=== PATIENT | male | born 1955 | race Caucasian/White ===

== ENCOUNTER 2017-03-10 16:57 | Inpatient (IN) ==
--- NOTE | 2017-03-10 17:20 | Emergency Department Note ---
Disposition Clinical Impression: Hypoxia, COPD exacerbation Pneumonia Qualifiers: Pneumonia type: due to unspecified organism Laterality: unspecified laterality Lung location: unspecified part of lung Qualified Code(s): J18.9 - Pneumonia, unspecified organism Disposition: Admitted As Inpatient Condition: Fair SOB HPI - General Chief Complaint: ED Shortness of Breath/Dyspnea Stated Complaint: SILVIA Time Seen by Provider: 03/10/17 17:01 Source: other Limitations: no limitations Nursing Notes Reviewed: Yes Vital Signs Reviewed: Yes - History of Present Illness Patient presents as a transfer from his nurse practitioner for further evaluation of pneumonia. Patient presents to triage with initial pulse ox of 83 %. Patient placed on 3 L nasal cannula and is currently at 95%. Patient has a history of lung cancer with left lipectomy. Patient has been having dyspnea for 2 weeks that has been tried to be treated as an outpatient. Patient has failed antibiotics which include azithromycin and Doxy and ceftriaxone IM. Patient has been without a cancer diagnosis for over 15 years. 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 Patient has not been receiving chemotherapy. Patient's COPD has been otherwise well controlled with at-home medications. Not oxygen dependent at home. - Related Data Home Medications Medication Instructions Recorded Confirmed Albuterol Sulfate [Ventolin Hfa] 2 puff IH Q4H PRN 03/10/17 03/10/17 Budesonide/Formoterol 160/4.5 2 puff IH BID 03/10/17 03/10/17 [Symbicort 160/4.5] Allergies Allergy/AdvReac Type Severity Reaction Status Date / Time adhesive tape Allergy Mild Blister Verified 03/10/17 17:18 acetaminophen [From Percocet] Allergy Hives Verified 03/10/17 17:18 Oxycodone [From Percocet] Allergy Hives Verified 03/10/17 17:18 Review of Systems: CONSTITUTIONAL: Fever and night sweats and weakness and fatigue HEENT: Eyes: No visual changes. Ears, Nose, Throat: No hearing loss, difficulty talking or unable to swallow. SKIN: No rash or itching. CARDIOVASCULAR: No chest pain, chest pressure or chest discomfort. No palpitations or edema. RESPIRATORY: Shortness of breath with cough GASTROINTESTINAL: No anorexia, nausea, vomiting or diarrhea. No abdominal pain or blood. GENITOURINARY: No burning on urination or hematuria. NEUROLOGICAL: No headache, dizziness, syncope, paralysis, ataxia, numbness or tingling in the extremities. No change in bowel or bladder control. MUSCULOSKELETAL: No muscle pain, back pain, joint pain or stiffness. Past Medical History - Past Medical History Medical history: Reports: cancer, COPD, TIA Psychiatric history: Reports: no psych history - Social History Smoking Status: Former smoker Smokeless Tobacco Status: No Alcohol use: Reports: occasionally Drug use: Reports: none Physical Exam General appearance: Pursed lip breathing Eyes: anicteric sclerae, moist conjunctivae; PERRL HENT: Atraumatic; oropharynx clear with moist mucous membranes and no mucosal ulcerations Neck: Normal inspection; Trachea midline; FROM, supple Lungs: Wheezing with significant rhonchi bilaterally. CV: RRR, no MRGs Abdomen: Soft, non-tender; no rebound or gaurding Extremities: No peripheral edema or extremity lymphadenopathy Skin: Normal temperature; no rash, ulcers or lesions Psych: Appropriate mood and affect Neuro: alert and oriented to person, place and time - General Limitations: no limitations General appearance: alert, in distress Course - Reevaluation(s) Reevaluation #1: Patient has an elevated white count. He has been on steroids but he also has rhonchi that are audible from the doorway. Chest x-ray is unremarkable from the previous per radiologist read however there is concern for right lower lobe pneumonia. Antibiotics started. Blood cultures are pending. Initial lactate normal. - Consultations Consultation #1: Discussed with hospitalist Dr. Figueroa. Pt accepted for admission. Vital Signs Temperature 98.0 F 03/10/17 17:00 Pulse Rate 112 03/10/17 17:00 Respiratory Rate 26 03/10/17 17:00 Blood Pressure 171/102 03/10/17 17:00 O2 Sat by Pulse Oximetry 83 03/10/17 17:00 Temperature 97.8 F 03/12/17 19:33 Pulse Rate 74 03/12/17 19:33 Respiratory Rate 18 03/12/17 19:33 Blood Pressure 111/62 03/12/17 19:33 O2 Sat by Pulse Oximetry 91 03/12/17 19:33 Oxygen Delivery Oxygen Delivery Nasal Cannula Shortness of Breath/Dyspnea - Medical Records Medical records reviewed: Yes I reviewed the patient's medical records. - Lab Data Lab results reviewed: Yes I reviewed the patient's lab results. Result diagrams: 03/12/17 03:45 03/12/17 06:37 Lab Results 03/10/17 03/10/17 03/10/17 Range/Units 17:10 17:10 17:10 WBC 15.3 H (4.3-11.1) K/mcL RBC 5.63 H (4.19-5.50) M/mcL Hgb 15.3 (12.9-16.9) g/dL Hct 47.3 (37.5-50.1) % MCV 84.0 (83.0-100.0) fL MCH 27.2 L (28.0-33.3) pg MCHC 32.3 (31.6-35.5) g/dL RDW 13.9 (11.5-14.5) % Plt Count 363 (140-400) K/mcL MPV 9.5 (9.4-12.4) fL Immature Gran % 1.3 (0-4) % Seg Neutrophils % 79.4 % Lymphocytes % 9.0 % Monocytes % 9.8 % Eosinophils % 0.2 % Basophils % 0.3 % Neutrophils # 12.1 H (1.6-8.9) K/mcL Lymphocytes # 1.4 (0.6-4.6) K/mcL Monocytes # 1.5 H (0.0-1.3) K/mcL Eosinophils # 0.0 (0.0-0.6) K/mcL Basophils # 0.0 (0.0-0.2) K/mcL Sodium 140 (136-145) mEq/L Potassium 4.2 (3.5-4.5) mEq/L Chloride 99 (98-109) mEq/L Carbon Dioxide 30 H (19-29) mEq/L BUN 18 (8-26) mg/dL Creatinine 0.85 (0.72-1.25) mg/dL Est GFR ( Amer) > 60 (> 60) Est GFR (Non-Af Amer) > 60 (> 60) BUN/Creatinine Ratio 21 (6-26) Glucose 122 H (70-99) mg/dL Calculated Osmolality 293 (280-300) Lactic Acid (0.5-2.2) mmol/L Calcium 9.2 (8.6-10.8) mg/dL Phosphorus 2.8 (2.3-4.7) mg/dL Magnesium 2.5 (1.6-2.6) mg/dL Troponin I 0.02 (0-0.03) ng/mL B-Natriuretic Peptide (0-100) pg/mL 03/10/17 03/10/17 Range/Units 17:10 18:17 WBC (4.3-11.1) K/mcL RBC (4.19-5.50) M/mcL Hgb (12.9-16.9) g/dL Hct (37.5-50.1) % MCV (83.0-100.0) fL MCH (28.0-33.3) pg MCHC (31.6-35.5) g/dL RDW (11.5-14.5) % Plt Count (140-400) K/mcL MPV (9.4-12.4) fL Immature Gran % (0-4) % Seg Neutrophils % % Lymphocytes % % Monocytes % % Eosinophils % % Basophils % % Neutrophils # (1.6-8.9) K/mcL Lymphocytes # (0.6-4.6) K/mcL Monocytes # (0.0-1.3) K/mcL Eosinophils # (0.0-0.6) K/mcL Basophils # (0.0-0.2) K/mcL Sodium (136-145) mEq/L Potassium (3.5-4.5) mEq/L Chloride (98-109) mEq/L Carbon Dioxide (19-29) mEq/L BUN (8-26) mg/dL Creatinine (0.72-1.25) mg/dL Est GFR ( Amer) (> 60) Est GFR (Non-Af Amer) (> 60) BUN/Creatinine Ratio (6-26) Glucose (70-99) mg/dL Calculated Osmolality (280-300) Lactic Acid 1.0 (0.5-2.2) mmol/L Calcium (8.6-10.8) mg/dL Phosphorus (2.3-4.7) mg/dL Magnesium (1.6-2.6) mg/dL Troponin I (0-0.03) ng/mL B-Natriuretic Peptide 35 (0-100) pg/mL - Radiology Data Radiology results reviewed: Yes I reviewed the patient's radiology results. - EKG Data EKG attestation: Yes I reviewed and interpreted this EKG. EKG results narrative: EKG shows sinus rhythm with ventricular rate of 106. LA interval 135. QRS 70. QTC 367. No significant ST elevations or depressions. No previous EKG for comparison. Attestation Statement - Attestation Attestation: I examined this patient and my medical decision-making was reviewed with the Resident Physician. I agree with the documented findings, disposition and treatment plan as described except to the extent set forth below. Patient presents to the ED with difficulty in breathing. Some progressive over a couple weeks. He seen his PCP multiple times. His multiple rounds of antibiotics and inhalers. He is getting worse. On examination he is in no distress. He is audibly wheezing. Crackles in bases. Plan. Patient short of breath on outpatient treatment. Likely admission. 30 minutes of critical care exclusive of separately billable procedures.
[2017-03-10 17:27] LABS: Basophils % 0.3 %; Eosinophils % 0.2 %; Hematocrit 47.3 % (37.5-50.1); Hemoglobin 15.3 g/dL (12.9-16.9); Immature Granulocytes % 1.3 % (0-4); Lymphocytes # 1.4 K/mcL (0.6-4.6); Mean Corpuscular HGB Conc 32.3 g/dL (31.6-35.5); Mean Corpuscular Hemoglobin 27.2 pg (28.0-33.3); Mean Platelet Volume 9.5 fL (9.4-12.4); Monocytes # 1.5 K/mcL (0.0-1.3); Monocytes % 9.8 %; Neutrophils # 12.1 K/mcL (1.6-8.9); Platelet Count 363 K/mcL (140-400); Red Blood Count 5.63 M/mcL (4.19-5.50); Red Cell Distribution Width 13.9 % (11.5-14.5); Segmented Neutrophils % 79.4 %
[2017-03-10 17:42] LABS: BUN/Creatinine Ratio 21 (6-26); Blood Urea Nitrogen 18 mg/dL (8-26); Calcium 9.2 mg/dL (8.6-10.8); Carbon Dioxide 30 mEq/L (19-29); Chloride 99 mEq/L (98-109); Glucose 122 mg/dL (70-99); Magnesium 2.5 mg/dL (1.6-2.6); Osmolality,Calculated 293 (280-300); Phosphorous 2.8 mg/dL (2.3-4.7); Potassium 4.2 mEq/L (3.5-4.5); Sodium 140 mEq/L (136-145); eGFR For African Americans > 60 (> 60); eGFR For Non-African Americans > 60 (> 60)
[2017-03-10] MEDS ORDERED: Ipratropium/Albuterol Neb 3 ML IH ONE (18:23)
[2017-03-10] MEDS ORDERED: methylPREDNISolone 125 MG/2 ML VIAL IVP ONE (18:24)
[2017-03-10] MEDS ORDERED: Piperacillin/Tazobactam 3.375 GM in D5% in Water (Mini-Bag+) 100 ML IVPB ONE (18:50)
[2017-03-10] MEDS ORDERED: Levofloxacin 750 MG/150 ML 750 MG/150 ML BAG IVPB STA (18:50)
[2017-03-10] MEDS ORDERED: Piperacillin/Tazobactam 3.375 GM in Water for inj. (sterile) 20 ML IVPB ONE (19:00)
[2017-03-10] MEDS: Piperacillin/Tazobactam 3.375 GM in Water for inj. (sterile) 20 ML IVP ONE ×2 (19:45→19:55)
[2017-03-10] MEDS ORDERED: Naloxone 0.4 MG/ML INJ IVP PRN ×2 (21:36→21:53)
[2017-03-10] MEDS ORDERED: Ipratropium/Albuterol Neb 3 ML IH PRN (21:39)
--- NOTE | 2017-03-10 21:49 | Internal Med History&Physical ---
Date of Encounter: 03/10/17 Time of Encounter: 21:45 Assessment and Plan (1) COPD exacerbation Current visit: Yes Status: Acute duonebs, IV steroids, IV levaquin send strep pneumo Ag, RVP CXR w/o over consolidation (2) Hypoxia Current visit: Yes Status: Acute treat above (3) Leukocytosis, unspecified Current visit: Yes Status: Acute doubt sepsis, could be from outpatient steroids blood cx sent from ED On antibiotics Qualifiers: Leukocytosis type: other Qualified Code(s): D72.828 - Other elevated white blood cell count Internal Medicine - H&P: HPI Chief complaint: SOB History of present illness: Mr. Harris is a 61 year old male who presents with COPD exacerbation. He reported 2 weeks hx of SOB and was seen by PCP Dr Boateng to receive outpatient steroids and antibiotics. Symptoms did not improve suggesting failure of outpatient therapy. He became so short of breathe that he gets winded walking in his house. At baseline, he is on RA. No improving factors. He quit smoking in 1992. Review noted some subjective fever. He has a hx of lung ca s/p resection and brain met s/p resection many years ago. Now in remission EKG personally reviewed with rate 106, sinus tachycardia XR/XR chest 1V portable IMPRESSION: Stable appearance of the chest with no acute abnormality. Past Med Surg Social Fam HX - Past Medical History Medical history: cancer, COPD, TIA Psychiatric history: no psych history - Past Surgical History Surgical History: no surgical history - Social History Smoking Status: Former smoker Smokeless Tobacco Status: No Alcohol use: occasionally Drug use: none - Additional Family History Additional family history: HTN Internal Medicine - H&P: Meds Albuterol Sulfate [Ventolin Hfa] 2 puff IH Q4H PRN 03/10/17 [History] Budesonide/Formoterol 160/4.5 [Symbicort 160/4.5] 2 puff IH BID 03/10/17 [ History] 3 Allergy/AdvReac Type Severity Reaction Status Date / Time adhesive tape Allergy Mild Blister Verified 03/10/17 17:18 acetaminophen [From Percocet] Allergy Hives Verified 03/10/17 17:18 Oxycodone [From Percocet] Allergy Hives Verified 03/10/17 17:18 All Systems PM: A 10-system review of systems was performed and is negative for pertinent findings except as documented above in the HPI. Review of systems: ROS 14 point review of systems reviewed as best as possible given presentation. Pertinent positive or negative as per HPI or otherwise reviewed as negative - Constitutional Vitals: Temp Pulse Resp BP Pulse Ox 97.5 F L 113 18 146/77 93 03/10/17 21:08 03/10/17 21:08 03/10/17 21:08 03/10/17 21:08 03/10/17 21:08 Exam: General - AAO x 3 Psych - Appropriate affect/speech. No agitation Eyes - NOEMI. Eye lids intact. No scleral icterus Neuro - No gross peripheral or central neuro deficits on inspection Heart - Sinus tachycardia. RRR. S1 and S2 present. No added HS/murmurs appreciated. No elevated JVD appreciated. Lung - Adequate air entry b/l, diffuse wheeze, bibasal crackles GI - Soft, non-tender. No hepatosplenomegaly/ascites. BS+ - No CVA/suprapubic tenderness or palpable bladder distension Skin - Intact. No rash/petechiae/ecchymosis. Warm extremities MSK - Joints with normal ROM. No joint swellings Internal Med - H&P Results - Labs CBC & Chem 7: 03/10/17 17:10 03/10/17 17:10
[2017-03-10] MEDS ORDERED: 0.9 % Sodium Chloride 1,000 ML IVC SCH (22:00)
[2017-03-10] MEDS: MethylPREDNISolone 40 MG/ML VIAL IVP SCH (23:24)
[2017-03-11 00:59] LABS: Adenovirus Not Detected (Not Detect); Bordetella Pertussis Not Detected (Not Detect); Chlamydophila pneumoniae Not Detected (Not Detect); Coronavirus 229E Not Detected (Not Detect); Coronavirus HKU1 Not Detected (Not Detect); Coronavirus NL63 Not Detected (Not Detect); Coronavirus OC43 Not Detected (Not Detect); Human Metapneumovirus Not Detected (Not Detect); Human Rhinovirus/Enterovirus Not Detected (Not Detect); Influenza A Subtype 2009 H1 ***DETECTED*** (Not Detect); Influenza A Untypeable Not Detected (Not Detect); Influenza B Not Detected (Not Detect); Mycoplasma pneumoniae Not Detected (Not Detect); Parainfluenza Virus 1 Not Detected (Not Detect); Parainfluenza Virus 2 Not Detected (Not Detect); Parainfluenza Virus 3 Not Detected (Not Detect); Parainfluenza Virus 4 Not Detected (Not Detect); Respiratory Syncytial Virus Not Detected (Not Detect)
[2017-03-11] MEDS: Ipratropium/Albuterol Neb 3 ML IH SCH ×2 (04:21→11:40)
[2017-03-11 05:09] LABS: BUN/Creatinine Ratio 23 (6-26); Blood Urea Nitrogen 18 mg/dL (8-26); Calcium 8.8 mg/dL (8.6-10.8); Carbon Dioxide 26 mEq/L (19-29); Chloride 102 mEq/L (98-109); Glucose 159 mg/dL (70-99); Magnesium 2.4 mg/dL (1.6-2.6); Osmolality,Calculated 291 (280-300); Potassium 4.3 mEq/L (3.5-4.5); Sodium 138 mEq/L (136-145); eGFR For African Americans > 60 (> 60); eGFR For Non-African Americans > 60 (> 60)
[2017-03-11 05:17] LABS: Basophils % 0.2 %; Hematocrit 43.9 % (37.5-50.1); Hemoglobin 13.9 g/dL (12.9-16.9); Immature Granulocytes % 1.5 % (0-4); Lymphocytes # 0.6 K/mcL (0.6-4.6); Lymphocytes % 6.2 %; Mean Corpuscular HGB Conc 31.7 g/dL (31.6-35.5); Mean Corpuscular Hemoglobin 26.7 pg (28.0-33.3); Mean Corpuscular Volume 84.3 fL (83.0-100.0); Mean Platelet Volume 9.6 fL (9.4-12.4); Monocytes # 0.2 K/mcL (0.0-1.3); Neutrophils # 8.5 K/mcL (1.6-8.9); Platelet Count 310 K/mcL (140-400); Red Blood Count 5.21 M/mcL (4.19-5.50); Red Cell Distribution Width 13.9 % (11.5-14.5); Segmented Neutrophils % 90.1 %
[2017-03-11] MEDS: MethylPREDNISolone 40 MG/ML VIAL IVP SCH ×3 (06:42→17:09)
[2017-03-11] MEDS: *HR* Enoxaparin 40 MG/0.4 ML SYRINGE SQ SCH (06:42)
[2017-03-11] MEDS ORDERED: *HR* Metoprolol 5 MG/5 ML VIAL IVP ONE ×3 (07:46→08:02)
[2017-03-11] MEDS ORDERED: 0.9 % Sodium Chloride 250 ML ONE (08:04)
[2017-03-11] MEDS: 0.9 % Sodium Chloride 1,000 ML IVC SCH (08:37)
[2017-03-11] MEDS: Levofloxacin 750 MG/150 ML 750 MG/150 ML BAG IVPB SCH (08:37)
[2017-03-11] MEDS: dilTIAZem HCl 100 MG in D5% in Water 50 ML IVC SCH ×3 (09:11→22:33)
[2017-03-11] MEDS: Budesonide/Formoterol 160/4.5 MDI IH SCH ×2 (11:40→23:06)
[2017-03-11] MEDS: *HR* Metoprolol 5 MG/5 ML VIAL IVP PRN ×2 (12:52→14:04)
--- NOTE | 2017-03-11 15:00 | Internal Med Progress Note ---
<Adolfo Alvarado - Last Filed: 03/11/17 15:16> Date of Encounter: 03/11/17 Time of Encounter: 08:00 - Assessment and plan (1) Atrial fibrillation with RVR Current Visit: Yes Status: Acute Assessment and plan: Patient's heart rate increased to 180-200 this morning. -Patient was given 25 mg of Lopressor IV and 5 mg Cardizem IV push. EKG demonstrated the presence of atrial fibrillation. -Patient was started on Cardizem drip. Plan: -Continue Cardizem drip -Metoprolol 50 mg by mouth twice a day -Continuous telemetry -Cardiac diet (2) Pneumonia Current Visit: Yes Status: Acute Assessment and plan: Chest x-ray demonstrated concern for possible right lower lobe pneumonia. -Patient's white count is 9.4. Plan: -DuoNeb 3 mL every 4 when necessary -Levaquin 750 mg IV daily -Solu-Medrol 40 mg IV every 6 hours Qualifiers: Pneumonia type: due to unspecified organism Laterality: unspecified laterality Lung location: unspecified part of lung Qualified Code(s): J18.9 - Pneumonia, unspecified organism (3) COPD exacerbation Current Visit: Yes Status: Acute Assessment and plan: Continue DuoNeb, Solu-Medrol, antibiotics. (4) Leukocytosis, unspecified Current Visit: Yes Status: Acute Assessment and plan: Resolved Qualifiers: Leukocytosis type: other Qualified Code(s): D72.828 - Other elevated white blood cell count (5) Influenza A virus subtype H1 2009 pandemic strain present Current Visit: Yes Status: Acute Assessment and plan: Serology was positive for influenza H1 N1/09. Plan: -Tamiflu 75 mg by mouth twice a day - Subjective Interval history: Patient was seen and excluded but since morning. Patient had a heart rate this morning in the 200s; was given 25mg of lopressor given IVP along with 5mg of Cardizem IVP. Started on Cardizem drip afterward. Heart rate is currently being maintained in the low 100s. EKG ordered demonstrated the presence of atrial fibrillation. Reported feeling dizzy before his heart rate started to rise. Denied having any palpitations or chest pain. Reports an improvement in his initial shortness of breath. - Constitutional Vitals: Temp Pulse Resp BP Pulse Ox 97.6 F 121 13 105/71 96 03/11/17 10:59 03/11/17 10:59 03/11/17 11:41 03/11/17 10:59 03/11/17 11:41 - Head Head exam: Present: atraumatic, normocephalic - Eye Eye exam: Present: PERRL, conjuntiva pink, sclera anicteric Pupils: Present: PERRL - Neck Neck exam general surgery: Present: supple, trachea midline. Absent: lymphadenopathy - Respiratory Respiratory exam: Present: CTAB. Absent: accessory muscle use, rales, rhonchi, wheezes - Cardiovascular Cardiovascular exam: Present: irregular rhythm, +S1, +S2, tachycardia. Absent: diastolic murmur, gallop, rubs, systolic murmur - Skin Skin exam: Present: dry, intact Internal Medicine: Result - Labs CBC & Chem 7: 03/11/17 04:52 03/11/17 04:52 Labs: Short CBC 03/11/17 Range/Units 04:52 WBC 9.4 (4.3-11.1) K/mcL Hgb 13.9 (12.9-16.9) g/dL Hct 43.9 (37.5-50.1) % Plt Count 310 (140-400) K/mcL Neutrophils # 8.5 (1.6-8.9) K/mcL BMP 03/11/17 04:52 Sodium 138 Potassium 4.3 Chloride 102 Carbon Dioxide 26 BUN 18 Creatinine 0.80 Glucose 159 H Calcium 8.8 Consult Discharge Plan - Plan Referrals: Suni Olmstead, [facility]ACILITY MANAGER [facility]OLOG[facility] [Primary Care Provider] - (web request sent on 03/11/17) <Vaughn Valerio H - Last Filed: 03/11/17 15:21> Date of Encounter: 03/11/17 - Constitutional Vitals: Temp Pulse Resp BP Pulse Ox 97.6 F 110 13 110/76 96 03/11/17 10:59 03/11/17 14:59 03/11/17 11:41 03/11/17 14:59 03/11/17 11:41 Internal Medicine: Result - Labs CBC & Chem 7: 03/11/17 04:52 03/11/17 04:52 Labs: Short CBC 03/11/17 Range/Units 04:52 WBC 9.4 (4.3-11.1) K/mcL Hgb 13.9 (12.9-16.9) g/dL Hct 43.9 (37.5-50.1) % Plt Count 310 (140-400) K/mcL Neutrophils # 8.5 (1.6-8.9) K/mcL BMP 03/11/17 04:52 Sodium 138 Potassium 4.3 Chloride 102 Carbon Dioxide 26 BUN 18 Creatinine 0.80 Glucose 159 H Calcium 8.8 - Attending Attestation A. fib with RVR likely triggered by acute COPD exacerbation due to sepsis from possible right lower lobe community acquired pneumonia, also influenza a [id number] levaquin , solumedrol tamiflu cardizem drip, metoprolol IV prn , metoprolol 50 mg BID consider cardiology consult if not improving consider anticoagulation if patient agrees I examined this patient and my medical decision-making was reviewed with the Resident Physician. I agree with the documented findings, disposition and treatment plan as described except to the extent set forth below.
[2017-03-11] MEDS: Levalbuterol Neb 1.25 MG/3 ML IH SCH ×2 (16:14→23:06)
--- NOTE | 2017-03-11 16:34 | Electrocardiograph Report ---
[address] [address] Test Date: 2017-03-10 Pat Name: Vlad Harris Department: 104 Room: 2A16 Gender: M Pleater: ACT : 1955 Requested By: Wyatt Rojas Order Number: [id number] Reading MD: Maryellen Ngo Measurements Intervals [place] Rate: 106 P: 77 ID: 135 QRS: 76 QRSD: 70 T: 63 QT: 305 QTc: 367 Interpretive Statements SINUS TACHYCARDIA ABNORMAL RHYTHM ECG Electronically Signed On 03-11-2017 16:33:21 EST by Maryellen Ngo
[2017-03-12] MEDS: 0.9 % Sodium Chloride 1,000 ML IVC SCH (00:08)
[2017-03-12] MEDS: MethylPREDNISolone 40 MG/ML VIAL IVP SCH ×3 (00:11→11:19)
[2017-03-12] MEDS: Levalbuterol Neb 1.25 MG/3 ML IH SCH ×4 (04:06→22:02)
[2017-03-12] MEDS: dilTIAZem HCl 100 MG in D5% in Water 50 ML IVC SCH ×2 (06:17→12:01)
[2017-03-12] MEDS: *HR* Enoxaparin 40 MG/0.4 ML SYRINGE SQ SCH (06:24)
[2017-03-12 06:57] LABS: BUN/Creatinine Ratio 29 (6-26); Blood Urea Nitrogen 21 mg/dL (8-26); Calcium 8.7 mg/dL (8.6-10.8); Carbon Dioxide 25 mEq/L (19-29); Chloride 104 mEq/L (98-109); Glucose 175 mg/dL (70-99); Magnesium 2.4 mg/dL (1.6-2.6); Osmolality,Calculated 297 (280-300); Potassium 3.9 mEq/L (3.5-4.5); Sodium 140 mEq/L (136-145); eGFR For African Americans > 60 (> 60); eGFR For Non-African Americans > 60 (> 60)
[2017-03-12 07:00] LABS: Basophils % 0.2 %; Hematocrit 42.7 % (37.5-50.1); Hemoglobin 13.8 g/dL (12.9-16.9); Immature Granulocytes % 1.4 % (0-4); Lymphocytes # 1.1 K/mcL (0.6-4.6); Lymphocytes % 5.6 %; Mean Corpuscular HGB Conc 32.3 g/dL (31.6-35.5); Mean Corpuscular Hemoglobin 27.6 pg (28.0-33.3); Mean Corpuscular Volume 85.4 fL (83.0-100.0); Mean Platelet Volume 10.2 fL (9.4-12.4); Monocytes # 0.5 K/mcL (0.0-1.3); Monocytes % 2.7 %; Platelet Count 386 K/mcL (140-400); Segmented Neutrophils % 90.1 %
[2017-03-12 07:01] LABS: Neutrophils # 16.9 K/mcL (1.6-8.9)
[2017-03-12] MEDS: Levofloxacin 750 MG/150 ML 750 MG/150 ML BAG IVPB SCH (07:34)
--- NOTE | 2017-03-12 09:51 | Internal Med Progress Note ---
<Adolfo Alvarado - Last Filed: 03/12/17 10:54> Date of Encounter: 03/12/17 Time of Encounter: 08:30 - Assessment and plan (1) Atrial fibrillation with RVR Current Visit: Yes Status: Acute Assessment and plan: Patient's heart rate increased to 180-200 this morning. -Patient was given 25 mg of Lopressor IV and 5 mg Cardizem IV push. EKG demonstrated the presence of atrial fibrillation. -Patient was started on Cardizem drip. Plan: -Continue Cardizem drip -Metoprolol 50 mg by mouth twice a day -Continuous telemetry -Cardiac diet (2) Pneumonia Current Visit: Yes Status: Acute Assessment and plan: Chest x-ray demonstrated concern for possible right lower lobe pneumonia. -Patient's white count is 9.4. Plan: -DuoNeb 3 mL every 4 when necessary -Levaquin 750 mg IV daily -Solu-Medrol 40 mg IV every 6 hours Qualifiers: Pneumonia type: due to unspecified organism Laterality: unspecified laterality Lung location: unspecified part of lung Qualified Code(s): J18.9 - Pneumonia, unspecified organism (3) COPD exacerbation Current Visit: Yes Status: Acute Assessment and plan: Continue DuoNeb, Solu-Medrol, antibiotics. (4) Leukocytosis, unspecified Current Visit: Yes Status: Acute Assessment and plan: Patient's Qualifiers: Leukocytosis type: other Qualified Code(s): D72.828 - Other elevated white blood cell count (5) Influenza A virus subtype H1 2009 pandemic strain present Current Visit: Yes Status: Acute Assessment and plan: Serology was positive for influenza H1 N1/09. Plan: -Tamiflu 75 mg by mouth twice a day - Subjective Interval history: Patient was seen and examined at bedside this morning. Reports feeling shortness of breath on exertion. Denies having any cough, fever, or chills. No further complaints at this time. - Constitutional Vitals: Temp Pulse Resp BP Pulse Ox 97.5 F L 105 17 104/66 90 03/12/17 07:35 03/12/17 07:35 03/12/17 07:35 03/12/17 07:35 03/12/17 07:35 - Head Head exam: Present: atraumatic, normocephalic - Eye Eye exam: Present: PERRL, conjuntiva pink, sclera anicteric Pupils: Present: PERRL - Neck Neck exam general surgery: Present: supple, trachea midline. Absent: lymphadenopathy - Respiratory Respiratory exam: Present: decreased breath sounds. Absent: accessory muscle use, rales, rhonchi, wheezes - Cardiovascular Cardiovascular exam: Present: +S1, +S2, tachycardia. Absent: diastolic murmur, gallop, rubs, systolic murmur - Extremities Exam Extremities exam: Present: warm, radial pulses palpable and symmetrical. Absent : calf tenderness, cyanotic, pedal edema - Skin Skin exam: Present: dry, intact Internal Medicine: Result - Labs CBC & Chem 7: 03/12/17 03:45 03/12/17 06:37 Labs: Short CBC 03/12/17 Range/Units 03:45 WBC 18.7 H D (4.3-11.1) K/mcL Hgb 13.8 (12.9-16.9) g/dL Hct 42.7 (37.5-50.1) % Plt Count 386 (140-400) K/mcL Neutrophils # 16.9 H (1.6-8.9) K/mcL BMP 03/12/17 06:37 Sodium 140 Potassium 3.9 Chloride 104 Carbon Dioxide 25 BUN 21 Creatinine 0.72 Glucose 175 H Calcium 8.7 Consult Discharge Plan - Plan Instructions: Atrial Fibrillation (DC) Referrals: Suni Olmstead, [employer] [Primary Care Provider] - (web request sent on 03/11/17) <Vaughn Valerio H - Last Filed: 03/12/17 13:33> Date of Encounter: 03/12/17 - Constitutional Vitals: Temp Pulse Resp BP Pulse Ox 97.8 F 65 18 108/66 95 03/12/17 11:32 03/12/17 11:32 03/12/17 11:32 03/12/17 11:32 03/12/17 11:32 Internal Medicine: Result - Labs CBC & Chem 7: 03/12/17 03:45 03/12/17 06:37 Labs: Short CBC 03/12/17 Range/Units 03:45 WBC 18.7 H D (4.3-11.1) K/mcL Hgb 13.8 (12.9-16.9) g/dL Hct 42.7 (37.5-50.1) % Plt Count 386 (140-400) K/mcL Neutrophils # 16.9 H (1.6-8.9) K/mcL BMP 03/12/17 06:37 Sodium 140 Potassium 3.9 Chloride 104 Carbon Dioxide 25 BUN 21 Creatinine 0.72 Glucose 175 H Calcium 8.7 - Attending Attestation A. fib with RVR in the setting of congesting, possible pulmonary edema as a result of pneumonia/influenza A Start IV Lasix, order CT scan of the chest, discontinue Solu-Medrol and continue prednisone Levaquin day 2, continue Cardizem drip, metoprolol, cardiology consult The patient would prefer to be on aspirin instead of other blood thinners such as Coumadin as he has a possible history of nonspecific brain lesions that may represent small metastases from a prior lung cancer treated for years that have been stable I examined this patient and my medical decision-making was reviewed with the Resident Physician. I agree with the documented findings, disposition and treatment plan as described except to the extent set forth below.
[2017-03-12] MEDS: Budesonide/Formoterol 160/4.5 MDI IH SCH ×2 (10:11→22:02)
[2017-03-12] MEDS ORDERED: *HR* Metoprolol 5 MG/5 ML VIAL IVP ONE (13:11)
--- NOTE | 2017-03-12 13:50 | Cardiology Consult Note ---
Date of Encounter: 03/12/17 Time of Encounter: 13:50 Assessment and Plan (1) Atrial fibrillation with RVR Current Visit: Yes Status: Acute New onset, yesterday morning. No prior hx of A-Fib. Currently in setting of COPD exacerbation, PNA, and Influenza, all of which are likely driving A-Fib with RVR. HR currently up to 130s at bedside despite being on Cardizem gtt at 15mg/hr and PO Lopressor 50mg BID. Also just received IV dose of 5mg Lopressor. CTA negative for PE. Shortly after seeing pt initially, he converted back to SR. Will transition to PO Cardizem--360mg daily. K 3.9, Mag 2.4. Check TSH. Check echo to evaluate structure and function. [id number] is 2 (TIA hx). Concern has been brought up by primary team regarding reported nonspecific brain lesions that may represent small metastases from a prior lung cancer treated for years that have been stable. No brain imaging at [facility] to review. Continue ASA for now. I did discuss Coumadin vs. NOACs with pt. He would prefer NOAC if safe. Will defer to primary team on if appropriate to start NOAC given his hx. Discussion w patient/family: The assessment and plan as outlined above was discussed with the patient and/or family members who expressed understanding and agreement. All questions were answered. Thank you for involving us in the care of your patient. Please call with any questions. I will discuss all the above with Dr. Carrillo and make changes as necessary. History of Present Illness Consult date: 03/12/17 Requesting physician: Vaughn Valerio Consult reason: A-Fib RVR Chief complaint: Dyspnea History of present illness: Mr. Harris is a 61 year old male with PMH of lung cancer with brain mets s/p resection and in remission, TIA. He presented with worsening dyspnea, diagnosed with COPD exacerbation, PNA, and influenza A. Yesterday morning he developed A- Fib RVR, was started on Cardizem gtt and is on PO BB. Continued to be A-Fib RVR on Cardizem gtt at 15mg/hr and Lopressor 50mg BID. Cardiology consulted for further recommendations. Pt denies chest pain or lower extremity edema, does report intermittent dizziness/lightheadedness. Pt has now converted back to SR. HR 70s. Past Med Surg Social Fam HX - Past Medical History Medical history: cancer, COPD, TIA Psychiatric history: no psych history - Past Surgical History Surgical History: no surgical history - Social History Smoking Status: Former smoker Smokeless Tobacco Status: No Alcohol use: occasionally Drug use: none - Family History Mother Living Status: Hx Family Cardiac Disorders: Yes Medications and Allergies Albuterol Sulfate [Ventolin Hfa] 2 puff IH Q4H PRN 03/10/17 [History] Budesonide/Formoterol 160/4.5 [Symbicort 160/4.5] 2 puff IH BID 03/10/17 [ History] 3 Allergy/AdvReac Type Severity Reaction Status Date / Time adhesive tape Allergy Mild Blister Verified 03/10/17 17:18 acetaminophen [From Percocet] Allergy Hives Verified 03/10/17 17:18 Oxycodone [From Percocet] Allergy Hives Verified 03/10/17 17:18 All Systems Review: A 10-system review of systems was performed and is negative for pertinent findings except as documented above in the HPI. - Cardiovascular Cardiovascular: as per HPI, dyspnea at rest, dyspnea on exertion, lightheadedness - Respiratory Respiratory: dyspnea, wheezing Physical Examination Vital Signs, Last 4 Hours Temp Pulse Resp BP Pulse Ox 03/12/17 11:32 97.8 F 65 18 108/66 95 03/12/17 10:30 97 03/12/17 10:13 18 93 Vital Signs Temp Pulse Resp BP Pulse Ox 03/12/17 11:32 97.8 F 65 18 108/66 95 03/12/17 10:30 97 03/12/17 10:13 18 93 03/12/17 07:35 97.5 F L 105 17 104/66 90 03/12/17 04:50 97.6 F 76 17 123/76 92 03/12/17 04:06 18 91 03/12/17 00:32 98 F 93 16 117/74 95 03/11/17 23:10 92 03/11/17 23:09 92 03/11/17 23:06 18 92 03/11/17 19:26 97.5 F L 93 16 113/68 96 03/11/17 16:14 15 96 03/11/17 15:32 98.0 F 92 15 112/66 96 03/11/17 14:59 110 110/76 Intake and Output 03/11/17 03/12/17 03/12/17 23:59 07:59 15:59 Intake Total 1290 / 1290 500 / 500 410 / 410 Output Total 300 / 300 450 / 450 240 / 240 Balance 990 / 990 50 / 50 170 / 170 Intake: IV Fluids 1050 / 1050 450 / 450 50 / 50 0.9 % Sodium Chloride 1,000 ML 1000 / 1000 400 / 400 @ 60 mls/hr IVC .[id number] JORDY Rx #:[id number] Cardizem 100 MG In Dextrose 5% 50 / 50 50 / 50 50 / 50 (ADD-[place]) 50 ML @ 5 MG/HR 2 .5 mls/hr IVC .Q20H JORDY Rx#: [id number] Oral 240 / 240 50 / 50 360 / 360 Output: Urine 300 / 300 450 / 450 240 / 240 Other: Meal Dinner Breakfast Percent of Meal Consumed 10% 100% # Voids 1 1 # Bowel Movements 0 0 Weight 74 kg Patient Weight 03/12/17 23:59 Weight 74 kg General: Conversant, No Apparent Distress HEENT: Atraumatic, Normocephaly, Mucus Membranes Moist Neck: Normal carotid pulses Cardiac: Reg Rate and Rhythm, Normal S1 and S2, No Murmur Lungs: Other (diminished, wheezes, rhonchi) Neuro: Alert and responsive, No focal deficits noted Abdomen: Soft, Non-Tender Skin: No rashes noted on visualized skin Musculoskeletal: No Chest Wall Tenderness Extremities: No Clubbing, No Cyanosis, No Edema, Normal Pulses Results 03/12/17 03:45 03/12/17 06:37 Lab Results 03/12/17 03/12/17 03:45 06:37 WBC 18.7 H D Hgb 13.8 Hct 42.7 Plt Count 386 Sodium 140 Potassium 3.9 Chloride 104 Carbon Dioxide 25 BUN 21 Creatinine 0.72 Glucose 175 H Calcium 8.7 Magnesium 2.4 Short CBC 03/12/17 Range/Units 03:45 WBC 18.7 H D (4.3-11.1) K/mcL Hgb 13.8 (12.9-16.9) g/dL Hct 42.7 (37.5-50.1) % Plt Count 386 (140-400) K/mcL Neutrophils # 16.9 H (1.6-8.9) K/mcL BMP 03/12/17 Range/Units 06:37 Sodium 140 (136-145) mEq/L Potassium 3.9 (3.5-4.5) mEq/L Chloride 104 (98-109) mEq/L Carbon Dioxide 25 (19-29) mEq/L BUN 21 (8-26) mg/dL Creatinine 0.72 (0.72-1.25) mg/dL Glucose 175 H (70-99) mg/dL Calcium 8.7 (8.6-10.8) mg/dL Active Medications Albuterol/Ipratropium (Duoneb) 3 ml IH [id number] PRN PRN Reason: Shortness Of Breath/Wheezing Stop: 09/09/17 21:40 Aspirin (Aspirin Ec) 81 mg PO DAILY JORDY Stop: 09/11/17 14:01 Budesonide/Formoterol Fumarate (Symbicort) 2 puff IH BIDR JORDY PRN Reason: Protocol Stop: 09/10/17 10:01 Last Admin: 03/12/17 10:11 Dose: 2 puff Enoxaparin Sodium (Lovenox) 40 mg SQ 0600 JORDY PRN Reason: Protocol Stop: 09/10/17 06:01 Last Admin: 03/12/17 06:24 Dose: 40 mg Furosemide (Lasix) 20 mg IVP BIDDIURETIC JODRY Stop: 09/11/17 13:31 Levofloxacin/Dextrose (Levaquin Premix 750mg/150 Ml) 750 mg in 150 mls @ 100 mls/hr IVPB DAILY JORDY PRN Reason: Protocol Stop: 09/10/17 09:01 Last Admin: 03/12/17 07:34 Dose: 100 mls/hr Diltiazem HCl 100 mg/ Dextrose 50 mls @ 2.5 mls/hr IVC .Q20H JORDY; 5 MG/HR PRN Reason: Protocol Stop: 09/10/17 08:31 Last Admin: 03/12/17 12:01 Dose: 15 mg/hr, 7.5 mls/hr Levalbuterol HCl (Xopenex) 1.25 mg IH QIDR JORDY Stop: 09/10/17 17:01 Last Admin: 03/12/17 10:11 Dose: 1.25 mg Metoprolol Tartrate (Lopressor) 5 mg IVP Q5MIN PRN PRN Reason: if HR >130 Stop: 03/13/17 12:46 Last Admin: 03/11/17 14:04 Dose: 5 mg Metoprolol Tartrate (Lopressor) 50 mg PO BID [facility] Stop: 09/10/17 13:10 Last Admin: 03/12/17 07:34 Dose: 50 mg Naloxone HCl (Narcan) 0.4 mg IVP Q2MIN PRN PRN Reason: Opioid Reversal Stop: 09/09/17 21:54 Oseltamivir Phosphate (Tamiflu) 75 mg PO BID [facility] Stop: 03/15/17 09:01 Last Admin: 03/12/17 07:33 Dose: 75 mg Prednisone (Prednisone) 40 mg PO DAILY [facility] Stop: 09/12/17 09:01 - EKG Interpretation EKG results cardiology: personally reviewed, other (12 hr tele AVG HR 118, A-Fib ) Consult Discharge Plan - Plan Instructions: Atrial Fibrillation (DC) Referrals: Suni Olmstead, [employer] [Primary Care Provider] - (web request sent on 03/11/17)
[2017-03-12] MEDS: Furosemide 20 MG/2 ML VIAL IVP SCH ×2 (13:52→16:57)
[2017-03-12] MEDS: Aspirin Enteric Coated 81 MG Tablet PO SCH (13:52)
[2017-03-12] MEDS: Diltiazem CD (24hr) 180 MG CAPSULE PO SCH (16:57)
--- NOTE | 2017-03-12 17:18 | Electrocardiograph Report ---
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
[2017-03-13] MEDS: Levalbuterol Neb 1.25 MG/3 ML IH SCH ×2 (05:10→11:46)
[2017-03-13 05:20] LABS: Basophils % 0.1 %; Hemoglobin 13.8 g/dL (12.9-16.9); Immature Granulocytes % 1.5 % (0-4); Lymphocytes % 5.7 %; Mean Corpuscular HGB Conc 32.1 g/dL (31.6-35.5); Mean Corpuscular Hemoglobin 27.2 pg (28.0-33.3); Mean Corpuscular Volume 84.8 fL (83.0-100.0); Mean Platelet Volume 9.6 fL (9.4-12.4); Monocytes # 0.9 K/mcL (0.0-1.3); Monocytes % 5.2 %; Neutrophils # 15.3 K/mcL (1.6-8.9); Platelet Count 357 K/mcL (140-400); Red Blood Count 5.07 M/mcL (4.19-5.50); Red Cell Distribution Width 14.1 % (11.5-14.5); Segmented Neutrophils % 87.5 %
[2017-03-13] MEDS: *HR* Enoxaparin 40 MG/0.4 ML SYRINGE SQ SCH (05:28)
[2017-03-13 05:30] LABS: BUN/Creatinine Ratio 34 (6-26); Blood Urea Nitrogen 31 mg/dL (8-26); Carbon Dioxide 28 mEq/L (19-29); Chloride 104 mEq/L (98-109); Glucose 141 mg/dL (70-99); Magnesium 2.6 mg/dL (1.6-2.6); Osmolality,Calculated 299 (280-300); Potassium 4.1 mEq/L (3.5-4.5); Sodium 140 mEq/L (136-145); eGFR For African Americans > 60 (> 60); eGFR For Non-African Americans > 60 (> 60)
[2017-03-13] MEDS ORDERED: predniSONE 20 MG TABLET PO SCH (09:00)
[2017-03-13] MEDS: Diltiazem CD (24hr) 180 MG CAPSULE PO SCH (09:18)
[2017-03-13] MEDS: Furosemide 20 MG/2 ML VIAL IVP SCH (09:19)
[2017-03-13] MEDS: Aspirin Enteric Coated 81 MG Tablet PO SCH (09:19)
[2017-03-13] MEDS: Levofloxacin 750 MG/150 ML 750 MG/150 ML BAG IVPB SCH (09:20)
--- NOTE | 2017-03-13 09:40 | Internal Med Progress Note ---
Date of Encounter: 03/13/17 Time of Encounter: 09:30 - Assessment and plan (1) Atrial fibrillation with RVR Current Visit: Yes Status: Acute (2) Pneumonia Current Visit: Yes Status: Acute Qualifiers: Pneumonia type: due to unspecified organism Laterality: unspecified laterality Lung location: unspecified part of lung Qualified Code(s): J18.9 - Pneumonia, unspecified organism (3) COPD exacerbation Current Visit: Yes Status: Acute (4) Leukocytosis, unspecified Current Visit: Yes Status: Acute Qualifiers: Leukocytosis type: other Qualified Code(s): D72.828 - Other elevated white blood cell count (5) Influenza A virus subtype H1 2009 pandemic strain present Current Visit: Yes Status: Acute - Subjective Interval history: Patient was seen and examined at bedside this morning. States that he is feeling well today. Reportsa that this is the best he has felt since his arrival to the hospital. Denies cheat pain, palpitations, or shortness of breath. No complaints at this time. Pulse this morning was 60 bpm. - Constitutional Vitals: Temp Pulse Resp BP Pulse Ox 98.2 F 60 17 104/62 95 03/13/17 03:33 03/13/17 07:17 03/13/17 07:17 03/13/17 07:17 03/13/17 07:17 Internal Medicine: Result - Labs CBC & Chem 7: 03/13/17 04:58 03/13/17 04:58 Labs: Short CBC 03/13/17 Range/Units 04:58 WBC 17.5 H (4.3-11.1) K/mcL Hgb 13.8 (12.9-16.9) g/dL Hct 43.0 (37.5-50.1) % Plt Count 357 (140-400) K/mcL Neutrophils # 15.3 H (1.6-8.9) K/mcL BMP 03/13/17 04:58 Sodium 140 Potassium 4.1 Chloride 104 Carbon Dioxide 28 BUN 31 H D Creatinine 0.90 Glucose 141 H Calcium 9.0 - Impressions Impressions Chest CT 03/12/17 13:28 IMPRESSION: 1. Multiple tree in bud opacities in the right middle lobe suggesting infectious bronchiolitis. 2. Nodule along the right minor fissure measuring 6 mm possibly intrapulmonary lymph node, please see follow-up guidelines below. 3. Few hypodense nodules are in the right thyroid gland. Left thyroid not visualized suggesting prior thyroidectomy. Consider further evaluation with thyroid ultrasound as clinically warranted. 4. Chronic/postsurgical findings as detailed above. RECOMMENDATIONS: Fleischner Society guidelines for follow-up and management of incidentally detected pulmonary nodules: Nodule size equals 6-8 mm In this high-risk patient, CT at 6-12 months, then CT at 18-24 months. Radiology 2017 http://pubs.rsna.org/doi/full/10.1148/radiol.[email or web address] D/ / Madisyn Santoyo MD / Madisyn Santoyo MD Interpreting Provider: Madisyn Santoyo MD Echocardiogram 03/12/17 15:33 Impressions: LVEF 60-65%. Normal LV chamber size, wall thickness and function. Mild left ventricular diastolic dysfunction. Normal right ventricular structure and function. No evidence of pulmonary hypertension identified. No significant valvular dysfunction. Left Ventricular Wall Motion: Rest Echo Findings All wall segments showed normal motion. Findings: Study Quality * Technically adequate exam. ECG Findings * Normal sinus rhythm. Left Ventricle * LVEF 60-65%. * Normal LV chamber size, wall thickness and function. * Mild left ventricular diastolic dysfunction. Right Ventricle * Normal right ventricular structure and function. Left Atrium * Mildly dilated left atrium. Right Atrium * Mildly dilated right atrium. Aortic Valve * Aortic valve not well visualized. * No aortic stenosis. * Trace aortic regurgitation. Mitral Valve * Normal mitral valve structure and function. * No mitral stenosis. * No mitral regurgitation. Tricuspid Valve * Normal tricuspid valve structure and function. * Trace tricuspid regurgitation. * No evidence of pulmonary hypertension identified. Pulmonic Valve * Pulmonic valve not well visualized. * No pulmonic regurgitation. Aorta * Normally sized aortic root. Pericardium * The pericardium appears normal. IVC * Normal IVC dimensions and inspiratory collapse. Pulmonary Artery * Normal visualized portions of the main pulmonary artery. Consult Discharge Plan - Plan Instructions: Atrial Fibrillation (DC) Referrals: Suni Olmstead, [employer] [Primary Care Provider] - (web request sent on 03/11/17)
--- NOTE | 2017-03-13 10:01 | Discharge Summary ---
<Adolfo Alvarado - Last Filed: 03/13/17 11:56> Date of Encounter: 03/13/17 Time of Encounter: 09:30 - Discharge Diagnosis (1) Atrial fibrillation with RVR Priority: Primary Status: Acute Comments: Continue cardizem and metoprolol; hold if heart rate falls below 55 beats per minute. (2) Pneumonia Priority: Primary Status: Acute Comments: Complete 7 more days of levaquin Qualifiers: Pneumonia type: due to unspecified organism Laterality: unspecified laterality Lung location: unspecified part of lung Qualified Code(s): J18.9 - Pneumonia, unspecified organism (3) COPD exacerbation Priority: Secondary Status: Resolved (4) Leukocytosis, unspecified Priority: Secondary Status: Acute Qualifiers: Leukocytosis type: other Qualified Code(s): D72.828 - Other elevated white blood cell count (5) Influenza A virus subtype H1 2009 pandemic strain present Priority: Secondary Status: Acute Comments: Complete 5 days of tamilflu - Discharge Medications Prescriptions: Diltiazem CD (24hr) [Cardizem CD] 360 mg PO DAILY #30 cap.er.24h Furosemide [Lasix] 20 mg PO DAILY #30 tablet Levofloxacin [Levaquin] 750 mg PO DAILY 4 Days #4 tablet Metoprolol [Lopressor] 50 mg PO BID #60 tablet Oseltamivir [Tamiflu] 75 mg PO BID 2 Days #4 capsule predniSONE [PredniSONE] See Taper PO DAILY #30 tablet Home Medications: Albuterol Sulfate [Ventolin Hfa] 2 puff IH Q4H PRN 03/10/17 [History] Budesonide/Formoterol 160/4.5 [Symbicort 160/4.5] 2 puff IH BID 03/10/17 [ History] Diltiazem CD (24hr) [Cardizem CD] 360 mg PO DAILY #30 cap.er.24h 03/13/17 [Rx] Furosemide [Lasix] 20 mg PO DAILY #30 tablet 03/13/17 [Rx] Levofloxacin [Levaquin] 750 mg PO DAILY 4 Days #4 tablet 03/13/17 [Rx] Metoprolol [Lopressor] 50 mg PO BID #60 tablet 03/13/17 [Rx] Oseltamivir [Tamiflu] 75 mg PO BID 2 Days #4 capsule 03/13/17 [Rx] predniSONE [PredniSONE] See Taper PO DAILY #30 tablet 03/13/17 [Rx] Allergies/Adverse Reactions: 3 Allergy/AdvReac Type Severity Reaction Status Date / Time adhesive tape Allergy Mild Blister Verified 03/10/17 17:18 acetaminophen [From Percocet] Allergy Hives Verified 03/10/17 17:18 Oxycodone [From Percocet] Allergy Hives Verified 03/10/17 17:18 Procedures/tests Complete & Pending: Procedures Performed prior 72 hours Category Date Time Status CT chest w con [CT] Routine Cat Scan 03/12/17 13:28 Completed ECG 12 lead ECG [ECG] Routine Y 03/11/17 08:25 Completed EV echocardiogram Routine Y 03/12/17 15:33 Completed Date of admission: 03/10/17 21:36 Primary care physician: Suni Olmstead CNP Consults: 03/12/17 13:08 Consult to Cardiology [CONS] Routine Comment: Consulting Provider: Cardiology Karely Reason for Consult: Afib with RVR, maxed out on cardizem Call Completed: No Discharging clinician: Adolfo Alvarado Anticipated date of discharge: 03/13/17 - Patient Status Disposition: Home Health Service Condition: Fair Overall status at discharge: patient is progressing back to baseline - Discharge Instructions Instructions: Atrial Fibrillation (DC) Follow Up With: Suni Olmstead CNP [Primary Care Provider] - (web request sent on 03/11/17) Additional Instructions: Hold cardizem and metoprolol if heart rate drops below 55 beats per minute. - Diet and Activity Activity: increase activity as tolerated Diet: advance to your usual diet Hospital course: Mr. Harris is a 61 year old male who presented to the hospital with SOB 2/2 COPD exacerbation. He reported 2 weeks hx of SOB and was seen by PCP Dr Boateng to receive outpatient steroids and antibiotics. Symptoms did not improve. SOB exacerbated by exertion. Initial pulse ox of 83%. Patient placed on 3 L nasal cannula, improved to 95%. CXR demonstrated RLL PNA. Patient was started on levaquin and solumedrol. On 03/11/17, Patient had a heart rate this morning in the 200s; was given 25mg of lopressor given IVP along with 5mg of Cardizem IVP. Started on Cardizem drip afterward. Heart rate was maintained in the low 100s. EKG ordered demonstrated the presence of atrial fibrillation. Reported feeling dizzy before his heart rate started to rise. Denied having any palpitations or chest pain. Reported an improvement in his initial shortness of breath. Cardiology was consulted. By this time, the patient's heart hate improved; on date of discharge, patient has a heart rate of 60 beats per minute. Cardiology switched the patient's cardizem to PO form. ECHO showed no acute abnormalities. Demonstrated EF 60-65% with mild diastolic dysfunction. Patient was seen and examined on date of discharge. Reported a significant improvement in his condition. States that he feels well and has no complaints at this time. PAtient will be discharged on levaquin (7 day course), tamiflu ( 5 day course), a prednisone taper, and lasix 20 mg PO daily. He will be given cardizem and metroprolol for rate control. Patient instructed to hold these meds if his heart rate drops below 55 bpm. Patient will likely need home O2; will qualify him today. - Time Spent with Patient Total time spent providing and/or coordinating discharge services: Greater than 30 minutes (41 minutes) - Constitutional Vitals: Temp Pulse Resp BP Pulse Ox 98.2 F 60 17 104/62 95 03/13/17 03:33 03/13/17 07:17 03/13/17 07:17 03/13/17 07:17 03/13/17 07:17 - Head Head exam: Present: atraumatic, normocephalic - Eye Eye exam: Present: PERRL, conjuntiva pink, sclera anicteric Pupils: Present: PERRL - Neck Neck exam general surgery: Present: supple, trachea midline. Absent: lymphadenopathy - Respiratory Respiratory exam: Present: decreased breath sounds. Absent: accessory muscle use, rales, rhonchi, wheezes - Cardiovascular Cardiovascular exam: Present: RRR, +S1, +S2. Absent: diastolic murmur, gallop, rubs, systolic murmur - GI/Abdominal GI/Abdominal exam: Present: normal bowel sounds, soft, no peritoneal signs. Absent: distended, tenderness - Skin Skin exam: Present: dry, intact <Vaughn Valerio - Last Filed: 03/13/17 12:55> Date of Encounter: 03/13/17 Procedures/tests Complete & Pending: Procedures Performed prior 72 hours Category Date Time Status CT chest w con [CT] Routine Cat Scan 03/12/17 13:28 Completed ECG 12 lead ECG [ECG] Routine Y 03/11/17 08:25 Completed EV echocardiogram Routine Y 03/12/17 15:33 Completed Date of admission: 03/10/17 21:36 Primary care physician: Suni Olmstead CNP Consults: 03/12/17 13:08 Consult to Cardiology [CONS] Routine Comment: Consulting Provider: Cardiology Karely Reason for Consult: Afib with RVR, maxed out on cardizem Call Completed: No Hospital course: Mr. Harrsi is a 61 year old male - Time Spent with Patient Total time spent providing and/or coordinating discharge services: - Constitutional Vitals: Temp Pulse Resp BP Pulse Ox 97.3 F L 63 17 102/55 96 03/13/17 11:31 03/13/17 11:31 03/13/17 11:31 03/13/17 11:31 03/13/17 11:31 - Attending Attestation A. fib with RVR in the setting of pulmonary congestion/possible acute pulmonary edema/acute diastolic CHF exacerbated by community acquired pneumonia/ influenza A Lasix, continue prednisone Levaquin , Tamiflu, continue Cardizem and metoprolol per cardiology history of nonspecific brain lesions that may represent small metastases from a prior lung cancer treated for years (that have been stable). No TIA, no anticoagulation , CHADS-VASc 0. I examined this patient and my medical decision-making was reviewed with the Resident Physician. I agree with the documented findings, disposition and treatment plan as described except to the extent set forth below.
[2017-03-13 11:35] VITALS: BP 102/55
[2017-03-13] MEDS: Budesonide/Formoterol 160/4.5 MDI IH SCH (11:46)
--- NOTE | 2017-03-13 11:55 | Physician Discharge Referral ---
<Adolfo Alvarado - Last Filed: 03/13/17 11:56> Home Health/Hosp Referral Info Transfer to: Home Health Provider in Charge Post Discharge: PCP - Diagnosis (1) Atrial fibrillation with RVR Priority: Primary Status: Acute (2) Pneumonia Priority: Primary Status: Acute (3) COPD exacerbation Priority: Secondary Status: Resolved (4) Leukocytosis, unspecified Priority: Secondary Status: Acute (5) Influenza A virus subtype H1 2009 pandemic strain present Priority: Secondary Status: Acute - Respiratory Orders Smoking Cessation: Smoking cessation has been advised. For more information, call the [place] [employer] Quit Line at 4-504-AUZJ-NOW. - Transfer Medications Prescriptions: Diltiazem CD (24hr) [Cardizem CD] 360 mg PO DAILY #30 cap.er.24h Furosemide [Lasix] 20 mg PO DAILY #30 tablet Levofloxacin [Levaquin] 750 mg PO DAILY 4 Days #4 tablet Metoprolol [Lopressor] 50 mg PO BID #60 tablet Oseltamivir [Tamiflu] 75 mg PO BID 2 Days #4 capsule predniSONE [PredniSONE] See Taper PO DAILY #30 tablet Home Medications: Albuterol Sulfate [Ventolin Hfa] 2 puff IH Q4H PRN 03/10/17 [History] Budesonide/Formoterol 160/4.5 [Symbicort 160/4.5] 2 puff IH BID 03/10/17 [ History] Diltiazem CD (24hr) [Cardizem CD] 360 mg PO DAILY #30 cap.er.24h 03/13/17 [Rx] Furosemide [Lasix] 20 mg PO DAILY #30 tablet 03/13/17 [Rx] Levofloxacin [Levaquin] 750 mg PO DAILY 4 Days #4 tablet 03/13/17 [Rx] Metoprolol [Lopressor] 50 mg PO BID #60 tablet 03/13/17 [Rx] Oseltamivir [Tamiflu] 75 mg PO BID 2 Days #4 capsule 03/13/17 [Rx] predniSONE [PredniSONE] See Taper PO DAILY #30 tablet 03/13/17 [Rx] Allergies/Adverse Reactions: 3 Allergy/AdvReac Type Severity Reaction Status Date / Time adhesive tape Allergy Mild Blister Verified 03/10/17 17:18 acetaminophen [From Percocet] Allergy Hives Verified 03/10/17 17:18 Oxycodone [From Percocet] Allergy Hives Verified 03/10/17 17:18 Certification: Further, I certify that my clinical findings support that this patient is homebound (i.e. absences from home require considerable and taxing effort and are for medical reasons or oriental orthodox services or infrequently or short duration when for other reasons) because: Homebound Reason: Patient requires assistance of a person or device to safely leave home Attestation: My signature below is to certify that this patient is under my care and that I, or nurse practitioner, or a physician's academic support assistant working with me, has a face-to -face encounter with this patient. <Vaughn Valerio - Last Filed: 03/13/17 12:55> - Respiratory Orders Smoking Cessation: Smoking cessation has been advised. For more information, call the [place] [employer] Quit Line at 9-805-IIXF-NOW. Certification: Further, I certify that my clinical findings support that this patient is homebound (i.e. absences from home require considerable and taxing effort and are for medical reasons or oriental orthodox services or infrequently or short duration when for other reasons) because: Attestation: My signature below is to certify that this patient is under my care and that I, or nurse practitioner, or a physician's academic support assistant working with me, has a face-to -face encounter with this patient.
== END 2017-03-13 15:30 | disposition home health service (06) | DRG 190 ==
LOC: EMEROO 16:57 → 2ANU 16:57
PROVIDERS: ADMIT Internal Medicine Hematology & Oncology; ATTEND Internal Medicine